=== PATIENT | male | born 1955 | race Caucasian/White ===

== ENCOUNTER 2022-05-25 06:10 | Day surgery (SDC) | payer OTHER, MEDICAID ==
[~2022-05-25] VITALS: Ht 167.6 cm; Wt 68.0 kg
[2022-05-25] MEDS: MIDAZOLAM HCL 5 MG/5 ML VIAL ONE ×3 (08:24→08:30)
[2022-05-25] MEDS ORDERED: MEPERIDINE 50 MG/ML VIAL ONE (08:24)
[2022-05-25 10:45] VITALS: BP_SYST 121
== END 2022-05-25 09:50 | disposition home or self-care (01) ==
LOC: SMU 06:10 → SDS 06:10
PROVIDERS: ATTEND Internal Medicine Gastroenterology
DX: Z12.11 Encounter for screening for malignant neoplasm of colon (principal); D12.3 Benign neoplasm of transverse colon; K64.8 Other hemorrhoids; I10 Essential (primary) hypertension; E11.9 Type 2 diabetes mellitus without complications; E78.5 Hyperlipidemia, unspecified; Z20.822 Contact with and (suspected) exposure to COVID-19; Z79.899 Other long term (current) drug therapy
CPT/HCPCS: 45385; 87426; 82962; 36415; 88305; 99152; G0378; J2250; J2175